=== PATIENT | female | born 1985 | race Caucasian/White ===

== ENCOUNTER 2018-11-10 15:12 | Emergency (ER) | payer OTHER ==
[~2018-11-10] VITALS: Ht 170.2 cm; Wt 154.2 kg
[~2018-11-10 15:12] MED LIST: PREDNISONE20 MG PO; PROVENTIL HFA6.7 GM INH; ZITHROMAX250 MG PO
[2018-11-10] MEDS ORDERED: FLUOXETINE HCL20 MG PO (15:40)
== END 2018-11-10 15:48 | disposition home or self-care (01) ==
LOC: ED 15:12
DX: M25.531 Pain in right wrist (principal)